=== PATIENT | female | born 1980 | race Caucasian/White ===

== ENCOUNTER → 2024-12-18 07:29 | Outpatient (CLI) | payer OTHER ==
[~2024-12-18 07:29] MED LIST: ULTRACET PO
[2024-12-18 09:34] LABS: ALBUMIN 3.6 gm/dL (3.4-5.0); BILIRUBIN TOTAL 0.65 mg/dL (0.3-1.2); CALCIUM 9.2 mg/dL (8.5-10.1); CREATININE SERUM 0.58 mg/dL (0.55-1.02); GFR 111.92; POTASSIUM 4.72 mEq/L (3.5-5.1); TOTAL PROTEIN 7.6 gm/dL (6.4-8.2)
== END | disposition home or self-care (01) ==
LOC: LAB 07:29
PROVIDERS: ATTEND Obstetrics & Gynecology Obstetrics
DX: D25.0 Submucous leiomyoma of uterus (principal); R97.1 Elevated cancer antigen 125 [CA 125]; N83.209 Unspecified ovarian cyst, unspecified side; E78.2 Mixed hyperlipidemia

== ENCOUNTER 2025-01-18 11:08 | Outpatient (CLI) | payer OTHER | END 2025-01-18 11:11 | disposition home or self-care (01) | LOC: SONOGRAMA 11:08 | DX: E03.5 Myxedema coma (principal) ==

== ENCOUNTER 2025-01-25 15:09 | Outpatient (CLI) | payer OTHER | END 2025-01-25 15:13 | disposition home or self-care (01) | LOC: MAMO-SONO 15:09 | PROVIDERS: ATTEND Obstetrics & Gynecology Obstetrics | DX: N64.0 Fissure and fistula of nipple (principal); N63.0 Unspecified lump in unspecified breast ==

== ENCOUNTER 2025-02-05 07:18 | Outpatient (CLI) | payer OTHER | END 2025-02-05 07:19 | disposition home or self-care (01) | LOC: SONOGRAMA 07:18 | PROVIDERS: ATTEND Obstetrics & Gynecology Obstetrics | DX: R10.9 Unspecified abdominal pain (principal) ==

== ENCOUNTER 2025-03-31 08:29 | Outpatient (CLI) | payer OTHER ==
[2025-03-31 09:28] LABS: BASO % 0.6 % (0.1-1.2); EOS # 0.04 (0.04-0.54); EOS % 0.8 % (0.7-7.0); LYMPH # 1.62 (1.18-3.74); LYMPH % 33.5 % (19.3-53.1); MEAN PLATELET VOLUME 13.50 fl (9.4-12.4); MONO # 0.44 (0.24-0.82); MONO % 9.1 % (4.7-12.5); NEUT # 2.69 (1.56-6.13); NEUT % 55.8 % (34.0-71.1); RED CELL DISTRIBUTION WIDTH 13.5 % (11.6-14.4)
[2025-03-31 10:00] LABS: ALT/SGPT 24.0 U/L (12-78); AST/SGOT 11.0 U/L (15-37); BILIRUBIN TOTAL 0.76 mg/dL (0.3-1.2); BUN CREA RATIO 27.0 (7.0-25.0); CREATININE SERUM 0.6 mg/dL (0.55-1.02); GFR 107.62; GLOBULINA 4.1 G/DL (2.4-3.5); GLUCOSE FASTING 107.0 mg/dL (65-100); OSMOLALITY SERUM 283.0 MOSM/KG (275-295)
== END 2025-03-31 08:40 | disposition home or self-care (01) ==
LOC: LAB 08:29
PROVIDERS: ATTEND Internal Medicine Endocrinology, Diabetes & Metabolism
DX: E55.9 Vitamin D deficiency, unspecified (principal); D64.9 Anemia, unspecified; R79.89 Other specified abnormal findings of blood chemistry; E11.65 Type 2 diabetes mellitus with hyperglycemia; R79.82 Elevated C-reactive protein (CRP); M35.9 Systemic involvement of connective tissue, unspecified; M06.9 Rheumatoid arthritis, unspecified; M45.9 Ankylosing spondylitis of unspecified sites in spine; M32.9 Systemic lupus erythematosus, unspecified

== ENCOUNTER 2025-04-02 06:18 | Outpatient (CLI) | payer OTHER ==
[2025-04-04 13:08] LABS: DNA AB DOUBLE STRABDED < 1 IU/mL (0-9)
[2025-04-04 15:12] LABS: CYCLIC CITRULLINE PEPTIDE 5 units (0-19)
== END 2025-04-02 06:23 | disposition home or self-care (01) ==
LOC: LAB 06:18
PROVIDERS: ATTEND Internal Medicine Endocrinology, Diabetes & Metabolism
DX: R79.82 Elevated C-reactive protein (CRP) (principal); M35.9 Systemic involvement of connective tissue, unspecified; M06.9 Rheumatoid arthritis, unspecified; M54.9 Dorsalgia, unspecified; M32.9 Systemic lupus erythematosus, unspecified